=== PATIENT | female | born 1930 | race Caucasian/White ===

== ENCOUNTER → 2017-07-19 | Outpatient (CLI) | payer MEDICARE ==
[~2017-07-19] MED LIST: AMBIEN10 MG PO; AMLODIPINE BESY10 MG PO; ATIVAN1 MG PO; AVAPRO300 MG PO; B-122500 MC1 PO; BACLOFEN10 MG PO; CATAPRES0.2 MG PO; CLONIDINE HCL0.1 MG PO; COUMADIN3 MG PO; DOCUSATE SODIU100 MG PO; ELIQUIS2.5 MG PO; GEMFIBROZIL600 MG PO; GRALISE300 MG PO; HYDROXYZINE HCL10 MG PO; IMDUR120 MG PO; IMDUR60 MG PO; LASIX20 MG PO; LATANOPROST2.5 ML BOTH EYES; LEVBID0.375 MG PO; LIPITOR20 MG PO; LISINOPRIL40 MG PO; LOPRESSOR25 MG PO; Lopid PO; MEDROL DOSEPAK4 MG PO; METOPROLOL SUCC25 MG PO; MICRO-K10 ME1 PO; NEXIUM40 MG PO; NITROSTAT0.4 MG SL; NORVASC10 MG PO; NORVASC5 MG PO; NULEV0.125 MG PO; OXYCODONE HCL10 MG PO; PLAVIX75 MG PO; POLYETHYLENE GL17 GM PO; PRADAXA150 MG PO; PROTONIX40 MG PO; RANITIDINE HCL150 MG PO; SPIRONOLACTONE25 MG PO; TESSALON PERLE100 MG PO; TOPROL XL6.25 MG PO; ULTRAM50 MG PO; VICODIN,LORT1 TABLET PO; ZOFRAN4 MG PO
== END | disposition home or self-care (01) ==
LOC: CDC 11:18
DX: M79.641 Pain in right hand (principal); M19.041 Primary osteoarthritis, right hand; I48.91 Unspecified atrial fibrillation; R94.31 Abnormal electrocardiogram [ECG] [EKG]
CPT/HCPCS: 93000

== ENCOUNTER 2017-07-25 10:02 | Day surgery (SDC) | payer OTHER ==
[~2017-07-25] VITALS: Ht 152.4 cm; Wt 58.6 kg
[2017-07-25 10:49] VITALS: BP 195/84
[2017-07-25 15:25] VITALS: BP 177/74
[2017-07-25 16:30] VITALS: BP 154/76
[2017-07-28] MEDS ORDERED: DILAUDID4 MG PO (21:11)
== END 2017-07-25 16:55 | disposition home or self-care (01) ==
LOC: SDC 10:02
DX: M18.11 Unilateral primary osteoarthritis of first carpometacarpal joint, right hand (principal); I25.719 Atherosclerosis of autologous vein coronary artery bypass graft(s) with unspecified angina pectoris; I48.2 Chronic atrial fibrillation; I12.9 Hypertensive chronic kidney disease with stage 1 through stage 4 chronic kidney disease, or unspecified chronic kidney disease; N18.9 Chronic kidney disease, unspecified; I34.0 Nonrheumatic mitral (valve) insufficiency; D64.9 Anemia, unspecified; E78.2 Mixed hyperlipidemia; Z88.0 Allergy status to penicillin; Z88.2 Allergy status to sulfonamides; Z95.1 Presence of aortocoronary bypass graft; Z79.01 Long term (current) use of anticoagulants; Z86.718 Personal history of other venous thrombosis and embolism
CPT/HCPCS: C1769; J1100; J2405; J3010; J3370; S0020

== ENCOUNTER 2017-07-28 13:52 | Inpatient (IN) | payer OTHER ==
[~2017-07-28] VITALS: Ht 152.4 cm; Wt 55.7 kg
[~2017-07-28 13:52] MED LIST changes: -AMBIEN10 MG PO; +AMBIEN5 MG PO
[2017-07-28 15:27] LABS: EOSINOPHIL (%) 0 % (0-5); HEMATOCRIT 35.8 % (36.0-46.0); IMMATURE GRANULOCYTE (%) 0.5 % (0.0-0.7); IMMATURE GRANULOCYTE COUNT 0.1 K/uL; INSTRUMENT ABS NEUTROPHIL CT 11.2 K/uL; LYMPHOCYTE COUNT 0.8 K/uL (1.0-2.8); MCH 29.5 PG (29.0-34.0); MCHC 32.4 G/DL (30.0-36.0); MCV 91.1 FL (83-99); MEAN PLAT.VOLUME 9.7 uM^3 (9.5-12.4); MONOCYTE (%) 5.6 % (3-12); MONOCYTE COUNT 0.7 K/uL (0-0.8); NEUTROPHIL (%) 87.5 % (45-76); NEUTROPHIL COUNT 11.2 K/uL (1.8-6.4); PLATELET COUNT 254 K/uL (156-360); RBC DIS.WIDTH-CV 13.2 % (11.8-14.6); RBC DIS.WIDTH-SD 43.6 % (39-53); RED BLOOD COUNT 3.93 M/uL (3.80-5.20); WHITE BLOOD COUNT 12.8 K/uL (4.1-10.2)
[2017-07-28 15:37] LABS: INTER. NORMALIZED RATIO 1.7; PROTHROMBIN TIME 19.2 SEC (10.2-12.9)
[2017-07-28 15:39] LABS: CHLORIDE 102 mEq/L (99-109); POTASSIUM 3.2 mEq/L (3.7-5.4); SODIUM 140 mEq/L (136-147)
[2017-07-28 15:40] LABS: PTT 31.3 SEC (25-37)
[2017-07-28 15:41] LABS: GLUCOSE 148 mg/dL (70-99)
[2017-07-28 15:42] LABS: ANION GAP 13 MEQ/L (2-14)
[2017-07-28 15:43] LABS: TOTAL BILIRUBIN 1.3 mg/dL (0.0-1.0)
[2017-07-28 15:44] LABS: ALKALINE PHOSPHATASE 100 IU/L (3-129)
[2017-07-28 15:45] LABS: GFR ESTIMATE (CALCULATED) 50 mL/min/
[2017-07-28 15:46] LABS: UREA NITROGEN (BUN) 14 mg/dL (9-23)
[2017-07-28 15:49] LABS: TROP-I INTERPRETATION POSITIVE
[2017-07-28 15:56] LABS: TROPONIN-I 1.79 ng/mL (0.0-0.30)
[2017-07-28 17:22] LABS: ADD MIUA? YES; BILIRUBIN NEGATIVE; BLOOD MODERATE; COLOR YELLOW ((YELLOW)); GLUCOSE (STRIP) NEGATIVE; KETONES NEGATIVE; LEUKOCYTES NEGATIVE; NITRITE NEGATIVE; PROTEIN (STRIP) 100; SPECIFIC GRAVITY 1.012 (1.000-1.030)
[2017-07-28 17:31] LABS: BACTERIA NONE SEEN /HPF; EPITHELIAL CELLS RARE /HPF; MUCUS NONE SEEN /LPF; UCUL ADDED? NO; WHITE BLOOD CELLS 0-5 /HPF (0-5)
[2017-07-28 18:48] LABS: TROP-I INTERPRETATION POSITIVE
[2017-07-28 19:55] LABS: MAGNESIUM 1.2 mg/dL (1.3-2.7)
[2017-07-28] MEDS ORDERED: DILAUDID2 MG PO (21:11)
[2017-07-28 22:12] VITALS: BP 147/65
[2017-07-28 23:27] VITALS: BP 129/58
[2017-07-29 00:21] LABS: CARBON DIOXIDE (BICARBONATE) 26.6 MEQ/L (20-31)
[2017-07-29 00:34] LABS: HEMATOCRIT 27.8 % (36.0-46.0); MCH 30.3 PG (29.0-34.0); MCHC 33.1 G/DL (30.0-36.0); MCV 91.4 FL (83-99); MEAN PLAT.VOLUME 9.5 uM^3 (9.5-12.4); PLATELET COUNT 222 K/uL (156-360); RBC DIS.WIDTH-CV 13.2 % (11.8-14.6); RBC DIS.WIDTH-SD 43.7 % (39-53); RED BLOOD COUNT 3.04 M/uL (3.80-5.20); WHITE BLOOD COUNT 10.2 K/uL (4.1-10.2)
[2017-07-29 00:37] LABS: MAGNESIUM 1.6 mg/dL (1.3-2.7)
[2017-07-29 00:46] LABS: TROP-I INTERPRETATION POSITIVE; TROPONIN-I 0.98 ng/mL (0.0-0.30)
[2017-07-29 02:03] LABS: HDL CHOLESTEROL 38 MG/DL (Desirable>=50); LDL CHOLESTEROL 103 mg/dL (Desirable<100); NON-HDL CHOLESTEROL 121 mg/dL (Desirable<160); TOTAL CHOLESTEROL 159 mg/dL (Desirable<200); TRIGLYCERIDES 88 MG/DL (Normal: <150)
[2017-07-29 04:04] LABS: INTER. NORMALIZED RATIO 1.7; PROTHROMBIN TIME 19.1 SEC (10.2-12.9)
[2017-07-29 04:49] VITALS: BP 155/68
[2017-07-29 06:02] LABS: CHLORIDE 108 mEq/L (99-109); SODIUM 141 mEq/L (136-147)
[2017-07-29 06:06] LABS: ANION GAP 9 MEQ/L (2-14)
[2017-07-29 06:13] LABS: EOSINOPHIL (%) 0.8 % (0-5); EOSINOPHIL COUNT 0.1 K/uL (0-0.3); HEMATOCRIT 29.6 % (36.0-46.0); IMMATURE GRANULOCYTE (%) 0.3 % (0.0-0.7); INSTRUMENT ABS NEUTROPHIL CT 7.2 K/uL; LYMPHOCYTE COUNT 1.2 K/uL (1.0-2.8); MCH 30.1 PG (29.0-34.0); MCHC 32.4 G/DL (30.0-36.0); MCV 92.8 FL (83-99); MEAN PLAT.VOLUME 9.8 uM^3 (9.5-12.4); MONOCYTE (%) 10.3 % (3-12); NEUTROPHIL (%) 76.3 % (45-76); NEUTROPHIL COUNT 7.2 K/uL (1.8-6.4); PLATELET COUNT 224 K/uL (156-360); RBC DIS.WIDTH-CV 13.2 % (11.8-14.6); RED BLOOD COUNT 3.19 M/uL (3.80-5.20); WHITE BLOOD COUNT 9.4 K/uL (4.1-10.2)
[2017-07-29 06:15] LABS: POTASSIUM 3.9 mEq/L (3.7-5.4); TOTAL BILIRUBIN 0.5 mg/dL (0.0-1.0)
[2017-07-29 06:23] LABS: GLUCOSE 117 mg/dL (70-99)
[2017-07-29 06:26] LABS: GFR ESTIMATE (CALCULATED) 56 mL/min/
[2017-07-29 06:35] LABS: ALKALINE PHOSPHATASE 82 IU/L (3-129)
[2017-07-29 06:36] LABS: UREA NITROGEN (BUN) 16 mg/dL (9-23)
[2017-07-29 07:35] VITALS: BP 137/63
[2017-07-29 08:07] LABS: POINT-OF-CARE METER ID UU13113781
[2017-07-29 10:32] LABS: INTER. NORMALIZED RATIO 1.7; PROTHROMBIN TIME 19.4 SEC (10.2-12.9)
[2017-07-29 11:30] VITALS: BP 146/63
[2017-07-29 11:38] LABS: POINT-OF-CARE METER ID UU13113781
[2017-07-29 13:16] LABS: PROTHROMBIN TIME 57.3 SEC (10.2-12.9)
[2017-07-29 13:18] LABS: INTER. NORMALIZED RATIO 4.9
[2017-07-29 14:08] LABS: INTER. NORMALIZED RATIO 1.5; PROTHROMBIN TIME 16.9 SEC (10.2-12.9)
[2017-07-29 14:10] LABS: PTT 48.1 SEC (25-37)
[2017-07-29 15:29] VITALS: BP 151/77
[2017-07-29 17:01] LABS: POINT-OF-CARE METER ID UU13113781
[2017-07-29 20:56] VITALS: BP 150/68
[2017-07-29 21:53] LABS: PTT > 200 sec (22-34)
[2017-07-30 01:18] VITALS: BP 162/80
[2017-07-30 04:47] VITALS: BP 168/84
[2017-07-30 06:19] LABS: HEMATOCRIT 29.1 % (36.0-46.0); MCHC 32.3 G/DL (30.0-36.0); MEAN PLAT.VOLUME 10.2 uM^3 (9.5-12.4); PLATELET COUNT 261 K/uL (156-360); RBC DIS.WIDTH-CV 13.2 % (11.8-14.6); RBC DIS.WIDTH-SD 45.1 % (39-53); RED BLOOD COUNT 3.13 M/uL (3.80-5.20); WHITE BLOOD COUNT 10.1 K/uL (4.1-10.2)
[2017-07-30 06:44] LABS: ANION GAP 10 MEQ/L (2-14); C-REACTIVE PROTEIN 173.6 MG/L (0-10); CHLORIDE 104 MEQ/L (99-109); GFR ESTIMATE (CALCULATED) 50 mL/min/; GLUCOSE 118 mg/dL (70-99); MAGNESIUM 2.1 mg/dl (1.3-2.7); POTASSIUM 3.5 MEQ/L (3.7-5.4); SAMPLE HEMOLYSIS CHECK 0; SAMPLE ICTERIC CHECK 0; SAMPLE LIPEMIA CHECK 0; SODIUM 136 MEQ/L (136-147); UREA NITROGEN (BUN) 15 mg/dL (9-23)
[2017-07-30 07:28] VITALS: BP 179/75
[2017-07-30 07:47] LABS: Estimated Average Glucose 120 mg/dL (70-123); HEMOGLOBIN A1c (GLYCOHEMOGLOB) 5.8 % HGB (Below 5.7)
[2017-07-30 07:51] LABS: ERTH.SED.RATE 42 MM/HR (0-30)
[2017-07-30 07:53] LABS: POINT-OF-CARE METER ID UU14174216
[2017-07-30 11:16] VITALS: BP 150/67
[2017-07-30 11:38] LABS: POINT-OF-CARE METER ID UU13113781
[2017-07-30 13:01] LABS: INTER. NORMALIZED RATIO 1.4; PROTHROMBIN TIME 15.7 SEC (10.2-12.9)
[2017-07-30 13:03] LABS: PTT 88.9 SEC (25-37)
[2017-07-30 15:32] VITALS: BP 158/72
[2017-07-30 19:48] VITALS: BP 142/64
[2017-07-31] VITALS (7 sets, daily range): BP systolic 141–177; BP diastolic 67–87
[2017-07-31 06:23] LABS: ANION GAP 13 MEQ/L (2-14); CHLORIDE 107 MEQ/L (99-109); GFR ESTIMATE (CALCULATED) 50 mL/min/; GLUCOSE 125 mg/dL (70-99); POTASSIUM 4.1 MEQ/L (3.7-5.4); SAMPLE HEMOLYSIS CHECK 0; SAMPLE ICTERIC CHECK 0; SAMPLE LIPEMIA CHECK 0; UREA NITROGEN (BUN) 12 mg/dL (9-23)
[2017-07-31 06:24] LABS: SODIUM 143 MEQ/L (136-147)
[2017-07-31 07:42] LABS: POINT-OF-CARE METER ID UU14174216
[2017-07-31 11:07] LABS: POINT-OF-CARE METER ID UU14174216
[2017-07-31 12:08] LABS: POINT-OF-CARE METER ID UU14174216
[2017-07-31 21:22] LABS: POINT-OF-CARE METER ID UU14174216
[2017-08-01] VITALS (8 sets, daily range): BP systolic 128–206; BP diastolic 60–98
[2017-08-01 05:30] LABS: HEMATOCRIT 33.6 % (36.0-46.0); MCH 29.6 PG (29.0-34.0); MCHC 32.1 G/DL (30.0-36.0); MCV 92.1 FL (83-99); MEAN PLAT.VOLUME 9.8 uM^3 (9.5-12.4); PLATELET COUNT 314 K/uL (156-360); RBC DIS.WIDTH-CV 13.2 % (11.8-14.6); RBC DIS.WIDTH-SD 44.2 % (39-53); RED BLOOD COUNT 3.65 M/uL (3.80-5.20); WHITE BLOOD COUNT 9.5 K/uL (4.1-10.2)
[2017-08-01 07:41] LABS: POINT-OF-CARE METER ID UU14174216
[2017-08-01 10:49] LABS: POINT-OF-CARE METER ID UU14174216
[2017-08-01 11:08] LABS: POINT-OF-CARE METER ID UU14174216
[2017-08-01] MEDS ORDERED: COLACE100 MG PO (13:37)
[2017-08-01] MEDS ORDERED: MIRALAX17 GM PO (13:37)
[2017-08-01 14:30] LABS: TROP-I INTERPRETATION NEGATIVE; TROPONIN-I 0.17 ng/mL (0.0-0.30)
[2017-08-01 16:38] LABS: POINT-OF-CARE METER ID UU13113698
[2017-08-01 21:20] LABS: POINT-OF-CARE METER ID UU13113698
[2017-08-02 04:19] VITALS: BP 174/76
[2017-08-02 08:03] VITALS: BP 197/81
[2017-08-02 11:45] VITALS: BP 153/69
[2017-08-02 13:07] LABS: HEMATOCRIT 32.7 % (36.0-46.0); MCH 31.4 PG (29.0-34.0); MCHC 33.9 G/DL (30.0-36.0); MCV 92.6 FL (83-99); MEAN PLAT.VOLUME 9.5 uM^3 (9.5-12.4); PLATELET COUNT 368 K/uL (156-360); RBC DIS.WIDTH-CV 13.6 % (11.8-14.6); RBC DIS.WIDTH-SD 45.7 % (39-53); RED BLOOD COUNT 3.53 M/uL (3.80-5.20); WHITE BLOOD COUNT 14.4 K/uL (4.1-10.2)
[2017-08-02 13:38] LABS: ANION GAP 13 MEQ/L (2-14); CHLORIDE 108 MEQ/L (99-109); GFR ESTIMATE (CALCULATED) 56 mL/min/; GLUCOSE 121 mg/dL (70-99); SAMPLE HEMOLYSIS CHECK 0; SAMPLE ICTERIC CHECK 0; SAMPLE LIPEMIA CHECK 0; SODIUM 141 MEQ/L (136-147); UREA NITROGEN (BUN) 15 mg/dL (9-23)
[2017-08-02 13:42] LABS: POTASSIUM 3.2 MEQ/L (3.7-5.4)
== END 2017-08-02 15:02 | DRG 856 ==
LOC: EME 13:52 → EDOF 20:00 → 4EAST 20:00 → ENRESERV 20:01 → 4EAST 21:58
PROVIDERS: Emergency Medicine; Hospitalist; Physician Assistant Medical
DX: T81.4XXA Infection following a procedure, initial encounter (principal); L03.113 Cellulitis of right upper limb; I21.4 Non-ST elevation (NSTEMI) myocardial infarction; G93.41 Metabolic encephalopathy; E83.42 Hypomagnesemia; I13.0 Hypertensive heart and chronic kidney disease with heart failure and stage 1 through stage 4 chronic kidney disease, or unspecified chronic kidney disease; I50.22 Chronic systolic (congestive) heart failure; N18.3 Chronic kidney disease, stage 3 (moderate); I48.2 Chronic atrial fibrillation; I08.3 Combined rheumatic disorders of mitral, aortic and tricuspid valves; I70.1 Atherosclerosis of renal artery; I25.5 Ischemic cardiomyopathy; E87.6 Hypokalemia; E78.2 Mixed hyperlipidemia; F03.90 Unspecified dementia, unspecified severity, without behavioral disturbance, psychotic disturbance, mood disturbance, and anxiety; I25.10 Atherosclerotic heart disease of native coronary artery without angina pectoris; R51 Headache; K21.9 Gastro-esophageal reflux disease without esophagitis; M06.9 Rheumatoid arthritis, unspecified; M19.90 Unspecified osteoarthritis, unspecified site; Y83.8 Other surgical procedures as the cause of abnormal reaction of the patient, or of later complication, without mention of misadventure at the time of the procedure; I25.2 Old myocardial infarction; Z86.73 Personal history of transient ischemic attack (TIA), and cerebral infarction without residual deficits; Z95.1 Presence of aortocoronary bypass graft; Z79.01 Long term (current) use of anticoagulants; Z88.0 Allergy status to penicillin; Z88.2 Allergy status to sulfonamides; Z88.1 Allergy status to other antibiotic agents; Z88.3 Allergy status to other anti-infective agents; Z87.891 Personal history of nicotine dependence; Z87.440 Personal history of urinary (tract) infections; Z87.442 Personal history of urinary calculi; Z85.42 Personal history of malignant neoplasm of other parts of uterus; Z88.6 Allergy status to analgesic agent; Z83.3 Family history of diabetes mellitus
CPT/HCPCS: 70450; 70551; 71010; 73110; 73140; 73560; 80048; 80053; 80061; 80202; 81003; 82803; 82948; 83036; 83605; 83735; 84484; 85025; 85027; 85610; 85651; 85730; 86140; 87040; 93005; 93306; 93971; 97530 GO; 99281; 99285; C1769; J0360; J0696; J1100; J1815; J1885; J2060; J2405; J3010; J3370; J3475; J3480; J7030; J7050; J7120; S0020